=== PATIENT | female | born 1950 | race Caucasian/White ===

== ENCOUNTER 2019-03-16 16:56 | Inpatient (IN) | payer MEDICARE, MEDICAID ==
[~2019-03-16] VITALS: Ht 165.1 cm; Wt 66.5 kg
[2019-03-16] MEDS ORDERED: LIBRIUM25 MG PO (20:39)
[2019-03-16] MEDS ORDERED: PEPCID AC20 MG PO (20:41)
[2019-03-16] MEDS ORDERED: FOLIC ACID1 MG PO (20:42)
[2019-03-16] MEDS ORDERED: ATROVENT 0.02%2.5 ML UPD (20:45)
[2019-03-16] MEDS ORDERED: MULTIGEN FOLIC1 EACH PO (20:46)
[2019-03-16] MEDS ORDERED: VITAMIN B-1100 M1 PO (20:47)
[2019-03-16] MEDS ORDERED: PROPAFENONE HC225 MG PO (20:48)
[2019-03-16] MEDS ORDERED: TOPROL XL100 MG PO (20:49)
[2019-03-16] MEDS ORDERED: CARDIZEM120 MG PO (20:50)
[2019-03-16] MEDS ORDERED: BAYER CHEWABLE81 MG PO (20:51)
[2019-03-16] MEDS ORDERED: HYDROCODON-ACE1 EAC7 PO (20:52)
[2019-03-16 20:59] VITALS: BP 121/72
--- NOTE | 2019-03-17 03:28 | NUR ---
PATIENT ARRIVED FROM [facility] VIA AMBULANCE AT 20:25, PATIENT HAD WENT TO [facility] ER FOR LEG PAIN AND WHILE THERE DEVELOPED ETOH WITHDRAWL SYMPTOMS, AND AFIB, PATIENT WAS COMBATIVE WITH HEALTHCARE TEAM AT [facility], EDWIND WORD IS 'BUSTER' AND CODE STATUS IS FULL CODE, WEIGHT IS 135.2 LBS, TWO PERSON ASSIST WHEN TRANSFERING, WILL CONTINUE TO MONITOR.
[2019-03-17 05:54] VITALS: BP 121/72; BMI 22.5
[2019-03-17 07:39] LABS: BASOPHILS 0.2 % (0-2); EOSINOPHILS 2.8 % (0-7); HEMATOCRIT 45.9 % (36.0-48.0); HEMOGLOBIN 15.9 g/dL (12-16); IMMATURE GRANULOCYTES 0.2 % (0-5); LYMPHOCYTES 21.7 % (15-50); MCH 33.4 pg (26.0-34.0); MCHC 34.6 g/dL (31.0-37.0); MCV 96.4 fL (80.0-100.0); MEAN PLATELET VOLUME 11.9 fL (7.4-10.4); MONOCYTES 9.7 % (2-11); NEUTROPHILS 65.4 % (40-80); PLATELET COUNT 206 10x3/uL (130-400); RBC 4.76 10x6/uL (4.00-5.40); RDW 13.1 % (11.5-14.5); WBC 9.2 10x3/uL (4.8-10.8)
[2019-03-17 08:23] LABS: ALBUMIN 2.7 g/dL (3.4-5.0); ANION GAP 12.4 mmol/L (8-16); BILIRUBIN - TOTAL 0.83 mg/dL (0.2-1.3); CALCIUM 9.3 mg/dL (8.5-10.1); CARBON DIOXIDE 28.7 mmol/L (21.0-32.0); CHOL - HDL RATIO 4.1 ratio (2.3-4.1); LDL-HDL RATIO 2.4 ratio (1.5-3.5); POTASSIUM - SERUM 4.1 mmol/L (3.5-5.1); PROTEIN - SERUM 7.4 g/dL (6.4-8.2); THYROID STIMULATING HORMONE 2.93 uIU/mL (0.36-3.74)
[2019-03-17 08:30] VITALS: BP 124/63
--- NOTE | 2019-03-17 10:23 | NUR ---
The patient is lethargic this am, she did not want to get out of bed, but she did stand for staff. Offered her prescribed meds, but she refused some of them. She answers some questions, but she stops talking at other times. She is in a w/c. Continue POC.
[2019-03-17 12:36] VITALS: Ht 165.1 cm; Wt 66.5 kg
--- NOTE | 2019-03-17 15:10 | NUR ---
The patient is staring blankly. She is talking and I did go up to her so that I could listen better, but she is nonsensical. I did offer her juice and water, she did drink it.
[2019-03-17 20:00] VITALS: BP 142/92
--- NOTE | 2019-03-18 03:29 | NUR ---
B) Patient is alert and oriented to person, restless and anxious I) Administered scheduled medications as ordered, PRN Ativan 0.5 mg PO for anxietyat 20:30 R) Medication compliant, sleeping now quietly P) Continue plan of care.
--- NOTE | 2019-03-18 07:20 | NUR ---
SITTING UP IN WHEELCHAIR.FLAT AFFECT.SLOW TO RESPOND VERBALLY.ORIENTED TO SELF.DOES NOT RESPOND TO ALL QUESTIONS.WILL CONTINUE WITH CURRENT PLAN OF CARE,MONITOR FOR CHANGES AND SAFETY.
[2019-03-18 11:09] VITALS: BP 127/66
--- NOTE | 2019-03-18 14:27 | PSY ---
PATIENT NAME:SILVIA MARIE MEDICAL RECORD: [id number] : 46 LOCATION:[facility]1123 ADMISSION DATE: 03/16/19 ACCOUNT: [id number] PSYCHIATRIC EVALUATION DATE OF EVALUATION: 03/17/19 IDENTIFYING DATA: The patient is 68 years old and she is admitted to the hospital on a voluntary basis. CHIEF COMPLAINT: Confusion. HISTORY OF PRESENT ILLNESS: At the beginning of this month, the patient presented to the Emergency Room at the [facility]. At that time, she was complaining about having some kind of pain or soreness in her leg. However, she was confused, combative with the staff and was experiencing alcohol withdrawal. She was admitted to the floor medically there because she also had atrial fibrillation. She has been confused and combative throughout her 3-week stay there and it is not improved and she was transferred to us for further evaluation and treatment. On interview, the patient is awake, but not interacting. She knows her name. She knows she is not in [place], which is where she is from, but she does not know where she is. She answers some pretty basic questions yes or no, it is hard to tell if she is correct, since I do not know about the background, but anything more than that if it requires a multiword answer, she trails off into a disorganized jumble. She has not been aggressive since she arrived here yesterday afternoon. PAST MEDICAL HISTORY: Was remarkably clean for a woman in her 70s. She had broken her hip about a year ago. She developed the atrial fibrillation in the hospital recently. Other than that, she has been fairly healthy. PAST PSYCHIATRIC HISTORY: Apparently significant for a lifelong problem with alcohol addiction. Through most of her adult life, she was somewhat functional, but still drink way too much. There is no known history of any kind of treatment interventions or other psychiatric problems. FAMILY HISTORY: Unknown. ALLERGIES: No known drug allergies. CURRENT MEDICATIONS: Include Rythmol, thiamine, folic acid, Pepcid, aspirin, metoprolol, and Cardizem. SOCIAL HISTORY: The patient is . Apparently, her last February. She has 2 adult sons who live out of state. I have information from one of them that she has been a lifelong alcoholic. I do not know much else about her social or occupational functioning at this time. MENTAL STATUS EXAMINATION: The patient is sleepy, but easily arousable and awake. She is oriented to person only. Her mood is flat. Her affect is constricted. Thought processes are disorganized and formal testing of her memory, concentration, and abstraction abilities is not possible. She denies that she would hurt herself or anyone else and she denies psychotic symptoms. ASSETS: Supportive family members. LIABILITIES: Limited insight. DIAGNOSTIC IMPRESSION: AXIS I: Alcohol-related dementia, alcohol abuse. AXIS II: Deferred. AXIS III: Atrial fibrillation, chronic obstructive pulmonary disease. AXIS IV: Moderate stressors. AXIS V: Global assessment of functioning is 20. PLAN: At this time, the patient is admitted to the hospital secondary to confusion and agitation likely associated with a protracted longstanding history of alcohol abuse. She will be admitted to the hospital and evaluated from both a medical, psychological, and social standpoint. She will be treated with both mood stabilizing and memory enhancing medications. Her long-term prognosis is guarded. TRANSINT:[id number] Voice Confirmation ID: [id number] DOCUMENT ID: [id number] NOHEMI MONTANEZ MD at 1427 CC: [id number] DICTATION DATE: 03/17/19906 ADVERTISING ACCOUNT EXECUTIVE: 03/17/19 0938 ADM IN [facility] [address] [place] [address]
--- NOTE | 2019-03-18 21:29 | NUR ---
RECEIVED IN DAYROOM. SITTING IN A CHAIR WITH PEERS AT HER SIDE. CALM AND COOPERATIVE WITH CARE AND ASSESSMENT. REDIRECT AND REORIENT NEEDED. RESTING IN BED WITH EYES CLOSED. CONTINUE PLAN OF CARE
[2019-03-19 09:20] VITALS: BP 114/69
--- NOTE | 2019-03-19 13:13 | PN ---
PATIENT:SILVIA MARIE MEDICAL RECORD: [id number] LOCATION:[facility]audhari ADMISSION DATE: 03/16/19 PROGRESS NOTE DATE OF SERVICE: 03/18/2019 SUBJECTIVE: The patient's case was discussed with staff. She has no new complaint. OBJECTIVE: The patient is tolerating her medicines well. There is no evidence of alcohol withdrawal. She is quite disorganized. ASSESSMENT: Alcohol-related dementia. PLAN: Current medicines have been reviewed and will be maintained. Long-term prognosis is guarded. TRANSINT:[id number] Voice Confirmation ID: [id number] DOCUMENT ID: [id number] NOHEMI MONTANEZ MD at 1313 CC: [id number] DICTATION DATE: 03/18/19 1438 CORPORATE QUALITY ASSURANCE MANAGER: 03/18/19 1620 ADM IN [facility] [address] [place] [address]
--- NOTE | 2019-03-19 15:00 | NUR ---
PATIENT IS ALERT AND ORIENTED TO PERSON ONLY. SHE IS QUIET AND LETHARGIC THIS MORNING, WITH CONFUSION NOTED. CALM AND COOPERATIVE WITH CARE AND ASSESSMENT. COMPLIANT WITH MEDICATIONS. MONITOR FOR SAFETY AND CHANGES. CONTINUE POC.
--- NOTE | 2019-03-19 15:27 | NUR ---
Nutrition Follow-up: Diet: Regular [facility] Soft PO intake: 0% x all meals No BM since admit. WT: 135.4# (03/17/19) Meds reviewed. No new labs. Recommend adding appetite stimulant as medically feasible. Also recommend bowel regimen. Will add Ensure TID. Encourage PO intake. RD following.
[2019-03-19 20:15] VITALS: BP 132/71
--- NOTE | 2019-03-19 21:24 | NUR ---
RECEIVED IN DAYROOM. SITTING IN A CHAIR WITH PEERS AT HER SIDE. CALM AND COOPERATIVE WITH CARE AND ASSESSMENT. ENCOURAGE TO EXPRESS NEEDS. RESTING IN BED WITH EYES CLOSED. CONTINUE PLAN OF CARE
[2019-03-20 07:12] LABS: RAPID PLASMA REAGIN Non Reactive (Non Reactive)
[2019-03-20 08:00] VITALS: BP 125/66
--- NOTE | 2019-03-20 11:11 | PN ---
PATIENT:SILVIA MARIE MEDICAL RECORD: [id number] LOCATION:[facility] ADMISSION DATE: 03/16/19 PROGRESS NOTE DATE OF SERVICE: 03/19/2019 SUBJECTIVE: The patient's case was discussed with staff. She has no new complaint. OBJECTIVE: The patient is severely impaired cognitively. She clearly has an advanced dementia. She has not been behaviorally out of control. She is not eating adequately. ASSESSMENT: Alcohol-related dementia. PLAN: Current medicines have been reviewed. I am going to give her Megace to assist with appetite stimulation. She will be monitored for clinical changes associated with its use. TRANSINT:[id number] Voice Confirmation ID: [id number] DOCUMENT ID: [id number] NOHEMI MONTANEZ MD at 1111 CC: [id number] DICTATION DATE: 03/19/19 172 MERCHANDISE CARRIER: 03/20/19 0234 ADM IN [facility] [address] [place] [address]
--- NOTE | 2019-03-20 14:32 | NUR ---
PT SITTING IN DAY AREA IN W/C. PT REFUSED TO EAT BREAKFAST AND LUNCH. PT KEEPS TO HERSELF NOT SPEAKING TO STAFF AND OTHERS. PT SPEECH IS VERY GARBLE. PT DID TAKE MEDICATIONS THIS SHIFT. STAFF ATTEMPTED TO ENCOURAGE PT TO EAT AND PT SPIT FOOD OUT. PT IS CONFUSED AND ALERT TO SELF ONLY. PT DOES NOT AMBUALTE. CHAIR ALARM IN PLACE AND ACTIVE. WILL CONT PLAN OF CARE.
[2019-03-20 20:00] VITALS: BP 141/79
--- NOTE | 2019-03-20 23:28 | NUR ---
B) Patient is alert and oriented to person and place, calm and cooperative this shift I) Administered scheduled medications as ordered, monitored for safety R) mediation compliant, very quiet and keeps toherself P) Continue plan of care.
--- NOTE | 2019-03-21 07:15 | NUR ---
The patient is awake, but she is staring blankly. She is lethargic, she answers some questions, but she usually does not speak. She has poor insight into her situation. She is in a w/c and needs assistance with transferring. Provide prescribed meds. She is not eating, drinking or taking her meds per instructor of sociology report. Continue POC.
--- NOTE | 2019-03-21 08:37 | PN ---
PATIENT:SILVIA MARIE MEDICAL RECORD: [id number] LOCATION:[facility]stein112 ADMISSION DATE: 03/16/19 PROGRESS NOTE DATE OF SERVICE: 03/20/2019 SUBJECTIVE: The patient's case was discussed with staff. She has no new complaint. OBJECTIVE: The patient is not eating adequately. She only ate 10% of one meal yesterday. She has started taking her medications, which I hope will assist her. She is still only oriented to person. TRANSINT:[id number] Voice Confirmation ID: [id number] DOCUMENT ID: [id number] NOHEMI MONTANEZ MD at 0837 CC: [id number] DICTATION DATE: 03/20/19 1319 PHYSICIST LIGHT AND OPTICS: 03/20/19 1402 ADM IN [place] [id number] [place] [address]
[2019-03-21 10:54] LABS: BASOPHILS 0.3 % (0-2); EOSINOPHILS 4.1 % (0-7); HEMATOCRIT 42.9 % (36.0-48.0); HEMOGLOBIN 15.1 g/dL (12-16); IMMATURE GRANULOCYTES 0.2 % (0-5); LYMPHOCYTES 22.5 % (15-50); MCH 33.1 pg (26.0-34.0); MCHC 35.2 g/dL (31.0-37.0); MCV 94.1 fL (80.0-100.0); MEAN PLATELET VOLUME 12.1 fL (7.4-10.4); NEUTROPHILS 63.9 % (40-80); PLATELET COUNT 210 10x3/uL (130-400); RBC 4.56 10x6/uL (4.00-5.40); RDW 12.8 % (11.5-14.5); WBC 6.6 10x3/uL (4.8-10.8)
[2019-03-21 11:01] LABS: CALC OSMOLALITY 286 mosm/kg (275-300); CALCIUM 9.3 mg/dL (8.5-10.1); CARBON DIOXIDE 27.5 mmol/L (21.0-32.0); CHLORIDE - SERUM 104 mmol/L (98-107); CREATININE - SERUM 0.8 mg/dL (0.6-1.3); GLUCOSE 111 mg/dL (74-106); POTASSIUM - SERUM 3.9 mmol/L (3.5-5.1); SODIUM 142 mmol/L (136-145); UREA NITROGEN 20 mg/dL (7-18); eGFR NON AFRICAN AMERICAN 75 mL/min (90-120)
[2019-03-21 11:30] VITALS: BP 125/62
[2019-03-21 20:28] VITALS: BP 139/80
--- NOTE | 2019-03-22 00:05 | NUR ---
B)SITTING IN WHEELCHAIR IN THE DAYROOM. DOES NOT ACKNOWLEDGE WHEN APPROACHED BY OTHERS. SITS WITH HEAD DOWN WITH NO EYE CONTACT OR VERBAL RESPONSES. CONFUSED AND DISORIENTED. I)ADMINISTER MEDS AND MONITOR COMPLIANCE. REORIENT NEEDED. R)MED COMPLIANT AFTER ALOT OF ENCOURAGEMENT. POOR REORIENTATION DUE TO IMPAIRED ABILITY TO COMPREHEND AND RETAIN INFORMATION. P)CONTINUE POC AND PROVIDE SAFE ENVIRONMENT.
[2019-03-22 09:56] VITALS: BP 113/46
--- NOTE | 2019-03-22 10:50 | NUR ---
Nutrition Follow-up: Diet: Regular [facility] Soft PO intake: 0-20%; noted in MD notes that pt is being fed but is refusing to eat or drink and is at risk for dehydration. No BM since admit x 6 days now. WT: 140# (03/18/19) Meds noted: megace. Labs noted: Glu 111 mg/dL. Current diet is appropriate. Continue to feed and encourage PO intake. Will add Ensure with meals. Continue Megace as medically feasible. May consider adding procalamine for a short time. If more aggressive nutrition support medically indicated or desired recommend: Osmolite 1.0 with goal rate of 62mL/hr + H2O @ 50Ml flush q 4hrs. RD following.
--- NOTE | 2019-03-22 14:00 | NUR ---
B) SITTING IN DAYROOM, WITH HEAD DOWN AND NO EYE CONTACT. SHE DOES NOT VERBALIZE ANYTHING THAT CAN BE UNDERSTOOD. I) ADMINISTERED PRESCRIBED MEDICATIONS ORDERED. REORIENT as directed. R) COMPLIANT WITH MEDICATIONS CRUSHED IN APPLESAUCE WITH A LOTS OF COERSION. P) MONITOR FOE SAFETY AND CONTINUE PLAN OF CARE.
--- NOTE | 2019-03-22 15:22 | PN ---
PATIENT:SILVIA MARIE MEDICAL RECORD: [id number] LOCATION:[facility] ADMISSION DATE: 03/16/19 PROGRESS NOTE DATE OF SERVICE: 03/21/2019 SUBJECTIVE: The patient's case was discussed with staff. She has no new complaint. OBJECTIVE: The patient is tolerating her medicines well. She is still not eating adequately. She unfortunately only takes her medications intermittently. ASSESSMENT: Alcohol-related dementia. PLAN: The patient will have some baseline labs checked. This will be for confirming metabolic stability. Her long-term prognosis is poor and it may be time to consider referring her to hospice if she does not begin eating and drinking. I believe the lack of oral intake is related to a dementing process as opposed to an underlying mood disorder. TRANSINT:[id number] Voice Confirmation ID: [id number] DOCUMENT ID: [id number] NOHEMI MONTANEZ MD at 1522 CC: [id number] DICTATION DATE: 03/21/19 0950 CRM COORDINATOR: 03/21/19 1009 ADM IN [place] [address] [place] [address]
[2019-03-22 20:00] VITALS: BP 136/72
--- NOTE | 2019-03-22 21:05 | NUR ---
PATIENT HAS A FLAT AFFECT, NO EYE CONTACT, HAVE HEARD THIS PATIENT SPEAK ONLY ONCE(ONE WORD). MEDS ARE CRUSHED AND SHE TAKES THEM. TOTALLY DEPENDENT UPON OTHERS FOR ALL CARE. WILL FOLLOW POC
[2019-03-23 08:02] VITALS: BP 124/69
[2019-03-23 08:39] VITALS: BP 124/69
--- NOTE | 2019-03-23 09:37 | NUR ---
The patient is lethargic she can stand with assist, but she does not want to do it. She took a couple bites of eggs. She drank her orange juice and ensure. She is in a w/c. She says very little. Provide prescribed meds. Crushed meds put in her ensure and she drank it. Continue POC.
--- NOTE | 2019-03-23 11:18 | NUR ---
SW SPOKE WITH PT'S SONS TO DISCUSS PROGNOSIS AND PT'S CONDITION. SW EDUCATED ON DISEASE PROGRESSION, MEDICATION MANAGEMENT, AND PT'S CONDITION. SW EXPLAINED PT'S PROGNOSIS IS POOR AND A HOSPICE CONSULT IS RECOMMENDED. SW EXPLANINED ABOUT 24/7 CARE AND IF THEY DIDN'T WANT TO DO HOSPICE THEY CAN TAKE THE OPTION OF A FEEDING TUBE IF RECOMMENDED BY THE PHYSICIAN. BOTH SONS STATED THEY NEED TO HAVE A CONVERSATION AMONGST THEMSELVES TO DECIDE WHAT IS THE NEXT STEP THEY WANT TO TAKE. THEY STATED THEY ARE WORKING OUT OF TOWN AND WOULD LIKE TO FOLLOW UP WITH WIRE DRAWING SETTER ON TUESDAY. SW EXPLAINED THEY CAN CALL FOR AN UPDATE AT ANYTIME. BOTH OF PT'S SONS VOICED UNDERSTANDING OF DISCUSSION.
--- NOTE | 2019-03-23 12:27 | NUR ---
PT CONTS TO NOT WANT TO EAT. NURSE GOT HER TO DRINK A ENSURE AT BREAKFAST. NURSE OFFERED SEVERAL DIFFERNT ITEMS AT LUNCH. OTHER NURSE ATTEMPTED TO ENCOURAGE AND ASSIST PT WITH LUNCH. PT REFUSED TO EAT ANYTHING. WILL CONT TO ENCOURAGE.
--- NOTE | 2019-03-23 14:14 | PN ---
PATIENT:SILVIA MARIE MEDICAL RECORD: [id number] LOCATION:[facility]stein112 ADMISSION DATE: 03/16/19 PROGRESS NOTE DATE OF SERVICE: 03/22/2019 SUBJECTIVE: The patient's case was discussed with staff. She has no new complaint. OBJECTIVE: The patient is not able to take the Depakote. I am going to go ahead and discontinue it. She is showing no evidence of alcohol withdrawal. Unfortunately, she is showing massive amount of evidence of an advanced dementia. ASSESSMENT: Alcohol-related dementia. PLAN: The patient is clearly going to require 04-boxy-w-day supervision. Her oral intake is exceedingly poor and almost superhuman efforts are being made by the department of staff to get her to take fluid and food. Obviously, if the situation does not change she is going to require feeding tube or some sort of IV hydration. TRANSINT:[id number] Voice Confirmation ID: [id number] DOCUMENT ID: [id number] NOHEMI MONTANEZ MD at 1414 CC: [id number] DICTATION DATE: 03/22/19 1537 TAP PULLER: 03/22/19 2336 ADM IN [facility] [address] [place] [address]
[2019-03-23 16:12] LABS: BASOPHILS 0.5 % (0-2); HEMATOCRIT 47.5 % (36.0-48.0); HEMOGLOBIN 16.2 g/dL (12-16); IMMATURE GRANULOCYTES 0.2 % (0-5); LYMPHOCYTES 28.6 % (15-50); MCH 32.7 pg (26.0-34.0); MCHC 34.1 g/dL (31.0-37.0); MEAN PLATELET VOLUME 11.8 fL (7.4-10.4); MONOCYTES 8.9 % (2-11); NEUTROPHILS 56.8 % (40-80); PLATELET COUNT 200 10x3/uL (130-400); RBC 4.95 10x6/uL (4.00-5.40); RDW 12.7 % (11.5-14.5); WBC 6.2 10x3/uL (4.8-10.8)
[2019-03-23 16:26] LABS: ANION GAP 16.7 mmol/L (8-16); CALCIUM 9.7 mg/dL (8.5-10.1); CARBON DIOXIDE 24.5 mmol/L (21.0-32.0); CREATININE - SERUM 0.9 mg/dL (0.6-1.3); POTASSIUM - SERUM 4.2 mmol/L (3.5-5.1); VALPROIC ACID (DEPAKOTE) 51.1 ug/mL (50.0-100.0)
[2019-03-23 20:10] VITALS: BP 147/83
--- NOTE | 2019-03-23 21:26 | NUR ---
RECEIVED IN DAYROOM. SITTING IN WHEELCHAIR QUIETLY WITH PEERS BY HER SIDE. CALM AND COOPERATIVE WITH CARE AND ASSESSMENT. DOESN'T ANSWER VERY MANY QUESTIONS AND RESPONSES DON'T MAKE SENSE MOST OF THE TIME WHEN SHE DOES ANSWER. REDIRECT AND REORIENT NEEDED. CONTINUES TO SIT QUIETLY IN DAYROOM AT THIS TIME. CONTINUE PLAN OF CARE.
[2019-03-24 08:00] VITALS: BP 107/83
--- NOTE | 2019-03-24 10:14 | NUR ---
PT SITTING AND ATTEMPTING TO TALK TO PEER AT THE TABLE. PT IS CALM AND COOPERATIVE WITH STAFF. NO ACUTE DISTRESS NOTED. PT ATE SOME AT BREAKFAST. PT DID ALLOW NURSE TO ADMINISTER MEDICATION. BLOOD PRESSURE MEDICATIONS HELD DUE TO BLOOD PRESSURE OF 110/83. PT IS ALERT AND ORIENTED TO SELF ONLY. CONFUSION NOTED. WHEN SPEAKS TO PT SHE ATTEMPTS TO TALK BACK UNABLE TO UNDERSTAND WHAT PT IS SAYING. WILL CONT TO ENCOURAGE PT TO TALK WITH STAFF, EAT MORE OF MEALS AND CONT TO TAKE MEDICATIONS. NO BEHAVIORS NOTED FROM PREVIOUS SHIFT. CHAIR ALARM IN PLACE AND ACTIVE. WILL CONT PLAN OF CARE.
--- NOTE | 2019-03-24 13:05 | PN ---
PATIENT:SILVIA MARIE MEDICAL RECORD: [id number] LOCATION:[facility]stein112 ADMISSION DATE: 03/16/19 PROGRESS NOTE DATE OF SERVICE: 03/23/2019 SUBJECTIVE: The patient's case was discussed with staff. She has no new complaint. OBJECTIVE: The patient will be maintained on current medications. She is blunted, withdrawn and minimally interacts. I am doubtful that the Trilafon is causing sedation, but we will consider discontinuing it. This patient has a clinical presentation that does not fit well with the longitudinal history. The longitudinal history is that she was intact a month ago. The clinical presentation is one of an advanced dementia, which obviously does not come on overnight. There is no evidence medically or neurologically of any other condition. At this point, I am going to treat her symptomatically and supportively and will refer her to a setting where her needs can be properly met. TRANSINT:[id number] Voice Confirmation ID: [id number] DOCUMENT ID: [id number] NOHEMI MONTANEZ MD at 1305 CC: [id number] DICTATION DATE: 03/23/19 1543 WEB MARKETING SPECIALIST: 03/23/19 2349 ADM IN [facility] [address] [place] [address]
--- NOTE | 2019-03-24 19:41 | NUR ---
RECEIVED IN DAYROOM. SITTING IN A CHAIR WITH PEERS AT HER SIDE. CALM AND COOPERATIVE WITH CARE AND ASSESSMENT. ENCOURAGE TO EXPRESS NEEDS. REDIRECT AND REORIENT NEEDED. RESTING QUIETLY IN DAYROOM AT THIS TIME. CONTINUE PLAN OF CARE.
[2019-03-24 20:24] VITALS: BP 114/73
[2019-03-25 08:17] VITALS: BP 124/75
[2019-03-25 14:01] LABS: BASOPHILS 0.4 % (0-2); EOSINOPHILS 5.2 % (0-7); HEMATOCRIT 46.7 % (36.0-48.0); HEMOGLOBIN 16.1 g/dL (12-16); IMMATURE GRANULOCYTES 0.3 % (0-5); LYMPHOCYTES 25.2 % (15-50); MCH 33.3 pg (26.0-34.0); MCHC 34.5 g/dL (31.0-37.0); MCV 96.5 fL (80.0-100.0); MEAN PLATELET VOLUME 11.8 fL (7.4-10.4); MONOCYTES 8.2 % (2-11); NEUTROPHILS 60.7 % (40-80); PLATELET COUNT 203 10x3/uL (130-400); RBC 4.84 10x6/uL (4.00-5.40); RDW 12.9 % (11.5-14.5); WBC 7.2 10x3/uL (4.8-10.8)
--- NOTE | 2019-03-25 14:21 | NUR ---
PT SITTING IN W/C AT THIS TIME. NO DISTRESS NOTED. ENCOURAGE PT TO MAKE NEEDS KNOWN. PT MUMBLES AT TIMES. PT IS CINFUSED ALERT TO SELF ONLY. PT IS EATING BETTER WITH INCREASED BITES OF FOOD AND DRINKING ENSURES WHEN NOT EATING MEALS. CONT TO ENCOURGE PT TO EAT. 2X ASSISTED TO TRANSFER. PT IS COMPLIANT WITH MEALS, VITALS, MEDS AND ASSESSMENTS. CHAIR ALARM IN PLACE AND ACTIVE. WILL CONT TO MONITOR.
[2019-03-25 14:24] LABS: ANION GAP 15.3 mmol/L (8-16); CARBON DIOXIDE 26.7 mmol/L (21.0-32.0); CREATININE - SERUM 0.9 mg/dL (0.6-1.3)
--- NOTE | 2019-03-25 19:04 | NUR ---
RECEIVED IN DAYROOM. SITTING IN WHEELCHAIR WITH PEERS BY HER SIDE. CALM AND COOPERATIVE WITH CARE AND ASSESSMENT. CONFUSED. REDIRECT AND REORIENT NEEDED. SITTING IN WHEELCHAIR IN DAYROOM AT THIS TIME. CONTINUE PLAN OF CARE.
[2019-03-25 20:29] VITALS: BP 139/92
[2019-03-26 10:23] VITALS: BP 109/73
--- NOTE | 2019-03-26 13:28 | NUR ---
PT IS AWAKE AND ALERT TO SELF ONLY. CALM AND COOPERATIVE WITH ASSESSMENT. PRESCRIBED MEDS PROVIDED ORDERED. MED COMPLIANT ,TAKES MED CRUSHED. PT ATTEMPTS TO TALK WITH STAFF, UNABLE TO UNDERSTAND WHAT PT IS SAYING. PT ENCOURAGED TO TALK WITH STAFF, EAT MORE OF MEALS AND CONT. TO TAKE MEDICATIONS. NO BEHAVIORS NOTED. CHAIR ALARM IN PLACE AND WORKING. WILL CPOC.
--- NOTE | 2019-03-26 13:49 | PN ---
PATIENT:SILVIA MARIE MEDICAL RECORD: [id number] LOCATION:[facility] Chaudhari ADMISSION DATE: 03/16/19 PROGRESS NOTE DATE OF SERVICE: 03/25/2019 SUBJECTIVE: The patient's case was discussed with staff. She has no new complaint. OBJECTIVE: The patient still is not eating adequately; however, in between meals staff is clearly giving her and getting for her Ensure and other liquids. ASSESSMENT: Alcohol-related dementia. PLAN: The patient will have baseline labs checked. She continues to not show any significant improvement, which I think is an ominous situation for her. Again, the son, that I spoke to on the phone, Adam, says that she was fine and completely conversant and interactive when he was here for Thanksgiving. She was on a ventilator at . My best guess is that this represents some sort of a global hypoxic injury along with some underlying damage that have been done over many years of alcohol consumption. TRANSINT:[id number] Voice Confirmation ID: [id number] DOCUMENT ID: [id number] NOHEMI MONTANEZ MD at 1349 CC: [id number] DICTATION DATE: 03/25/19 1228 ROLLING CHAIR PUSHER: 03/25/19 1317 ADM IN [place] [address] [place] [address]
--- NOTE | 2019-03-26 13:49 | PN ---
PATIENT:SILVIA MARIE MEDICAL RECORD: [id number] LOCATION:[facility] Chaudhari ADMISSION DATE: 03/16/19 PROGRESS NOTE DATE OF SERVICE: 03/24/2019 SUBJECTIVE: The patient's case was discussed with staff. She has no new complaint. OBJECTIVE: The patient is in good behavioral control, but very withdrawn. She is not eating or drinking adequately. She has an elevated BUN. Staff is attempting to improve her oral intake with very limited results. ASSESSMENT: Dementia. PLAN: Current medicines have been reviewed and will be maintained. Long-term prognosis is guarded. TRANSINT:[id number] Voice Confirmation ID: [id number] DOCUMENT ID: [id number] NOHEMI MONTANEZ MD at 1349 CC: [id number] DICTATION DATE: 03/24/19 1359 MANAGER VIDEO GAMES: 03/24/19 1444 ADM IN [place] [address] [place] [address]
[2019-03-26 20:31] VITALS: BP 120/82
--- NOTE | 2019-03-26 20:49 | NUR ---
RECEIVED IN DAYROOM. SITTING IN A CHAIR WITH PEERS AT HER SIDE. CALM AND COOPERATIVE WITHCARE AND ASSESSMENT. REDIRECT AND REORIENT NEEDED. RESTING IN BED WITH EYES CLOSED AT THIS TIME. CONTINUE PLAN OF CARE
--- NOTE | 2019-03-26 20:52 | NUR ---
RECEIVED IN DAYROOM. SITTING IN A CHAIR WITH PEERS AT HER SIDE. NO STATEMENTS OF SELF HARM VOICED THIS EVENING. ENCOURAGE TO EXPRESS NEEDS. RESTING IN BED WITH EYES CLOSED. CONTINUE PLAN OF CARE
[2019-03-27 10:10] VITALS: BP 120/61
--- NOTE | 2019-03-27 11:59 | NUR ---
The patient is awake and more alert, but she is speaking nonsensical and it is difficult to understand her. She keeps getting in other patients space, but she is carrying on a conversation. She has poor insight into her situation. She is a two person assist with transfers. Provide prescribed meds. The patient is compliant with meds. Continue POC.
--- NOTE | 2019-03-27 15:10 | PN ---
PATIENT:SILVIA MARIE MEDICAL RECORD: [id number] LOCATION:[facility] Goldstein112 ADMISSION DATE: 03/16/19 PROGRESS NOTE DATE OF SERVICE: 03/26/2019 SUBJECTIVE: The patient's case was discussed with staff. She has no new complaint. OBJECTIVE: The patient is in good behavioral control. She has poor insight about her situation. She is actually eating a little bit and very much to the credit of our nursing staff, they must be getting water and bottles of Ensure into her periodically because her lab is not what I would expect to be based upon the account for her meals and she is only mildly dehydrated and she has not lost any weight since last week. Unfortunately, she still remains profoundly impaired and I have no explanation for what might have happened to provide to the family. This is how she looked when she was sent to me from [facility]. This is not what she looked like when she was sent to [facility] according to the son. I do not have an explanation. She looks clinically to me is like someone who has an advanced dementia. ASSESSMENT: No change in diagnoses. PLAN: Current medicines have been reviewed and will be maintained. Long-term prognosis is guarded. I think it is time to look for placement for this patient and she is clearly at this point going to need 42-jvyp-o-day supervision. TRANSINT:[id number] Voice Confirmation ID: [id number] DOCUMENT ID: [id number] NOHEMI MONTANEZ MD at 1510 CC: [id number] DICTATION DATE: 03/26/19 1533 COMMUNICATIONS TOWER CLIMBER: 03/26/19 2247 ADM IN [place] [id number] [place] [address]
[2019-03-27 22:07] VITALS: BP 130/64
--- NOTE | 2019-03-28 02:09 | NUR ---
B) Patient is alert and oriented to person, social with other patients, I) Administered scheduled medications as ordered, redirected as needed R) Medication compliant, resting quietly in her bed now, P) Continue plan of care.
[2019-03-28 09:25] VITALS: BP 117/68
--- NOTE | 2019-03-28 09:41 | PN ---
PATIENT:SILVIA MARIE MEDICAL RECORD: [id number] LOCATION:[facility] ADMISSION DATE: 03/16/19 PROGRESS NOTE DATE OF SERVICE: 03/27/2019 SUBJECTIVE: The patient's case was discussed with staff. She has no new complaint. OBJECTIVE: The patient is still not eating or drinking adequately. However, sufficient fluid and nutrition is getting into her through the regular consumption of Ensure. She would not interact with me today, but she did speak a complete sentence telling me twice she wants me to go away. ASSESSMENT: No change in diagnoses. PLAN: Current medicines have been reviewed and will be maintained. I am not optimistic about her prognosis despite the fact she is a little better today. TRANSINT:[id number] Voice Confirmation ID: [id number] DOCUMENT ID: [id number] NOHEMI MONTANEZ MD at 0941 CC: [id number] DICTATION DATE: 03/27/19 1544 RESPIRATORY CARE FACULTY: 03/28/19 0057 ADM IN [place] [id number] [place] [address]
[2019-03-28 10:05] VITALS: BP 117/68
--- NOTE | 2019-03-28 11:28 | NUR ---
PT IS AWAKE AND ALERT TO SELF ONLY. CALM AND COOPERATIVE WITH ASSESSMENT. PRESCRIBED MEDS PROVIDED ORDERED. NONCOMPLIANT WITH MEDS. PT IS VERY CONFUSED. PT ATTEMPTS TO SPEAK, SPEECH IS VERY UNCLEAR AND HARD TO MAKE OUT AT TIMES. NO BEHAVIORS NOTED AT THIS TIME. PT REFUSES TO EAT OR DRINK AT THSI TIME. ENCOURAGED PT TO EXPRESS NEEDS TO STAFF. DRINKS AND SNACKS OFFERRED TO PT, REFUSED X 3. WILL ATTEMPT AT LATER TIME. REDIRECT AND REORIENT NEEDED. WILL CPOC.
--- NOTE | 2019-03-28 19:18 | NUR ---
RECEIVED IN DAYROOM. SITTING IN A RECLINING CHAIR. CALM AND COOPERATIVE WITH CARE AND ASSESSMENT. NO STATEMENTS OF SELF HARM MADE THIS EVENING. ENCOURAGE TO EXPRESS NEEDS. RESTING IN A RECLINER OUTSIDE OF NURSES STATION AT THIS TIME. CONTINUE PLAN OF CARE
--- NOTE | 2019-03-28 19:23 | NUR ---
RECEIVED IN DAYROOM. SITTING IN A RECLINING CHAIR WITH PEERS AT HER SIDE. CALM AND COOPERATIVE WITH CARE AND ASSESSMENT. ENCOURAGE TO EXPRESS NEEDS. RESTING IN A RECLINER OUTSIDE OF NURSES STATION AT THIS TIME. CONTINUE PLAN OF CARE
[2019-03-28 20:29] VITALS: BP 114/86
[2019-03-29 09:50] VITALS: BP 113/60
--- NOTE | 2019-03-29 13:56 | NUR ---
The patient is more awake and alert she is making some conversation but she is nonsensical at times. She is starting to eat and drink better. She still does not want to talk to Dr. Anand. She is self propelling in her w/c at times. Provide prescribed meds. The patient is compliant with meds. Continue POC.
--- NOTE | 2019-03-29 14:21 | PN ---
PATIENT:SILVIA MARIE MEDICAL RECORD: [id number] LOCATION:[facility] ADMISSION DATE: 03/16/19 PROGRESS NOTE DATE OF SERVICE: 03/28/2019 SUBJECTIVE: The patient's case was discussed with staff. She has no new complaint. OBJECTIVE: The patient is in good behavioral control. She has poor insight about her condition. She tolerates her medicines well. ASSESSMENT: Alcohol-related dementia. PLAN: The patient will be maintained on current medicines. She is more awake and alert. She is interacting with me some and the interaction is primarily her telling me to leave her alone. I am going to start her on an antidepressant medicine even though my suspicion is this is primarily a condition related to either in hypoxic injury or some longstanding dementing process. TRANSINT:[id number] Voice Confirmation ID: [id number] DOCUMENT ID: [id number] NOHEMI MONTANEZ MD at 1421 CC: [id number] DICTATION DATE: 03/28/19 1016 HIDE AND SKIN CLASSER: 03/28/19 1251 ADM IN [facility] [address] [place] [address]
--- NOTE | 2019-03-29 15:53 | NUR ---
Nutrtion Follow-up: Diet: Regular Mech Soft + Ensure with meals and inbetween PO intake: ~18% average x last 9 meals; drinks supplements per MD notes Last BM: 03/23/19. WT: 135# (03/25/19); Admit wt: 135.4# (03/17/19) Meds noted: megace. No new labs. Continue current nutrition regimen. Encourage PO intake. Consider increase in bowel regimen. RD following.
[2019-03-30 00:28] VITALS: BP 130/68
--- NOTE | 2019-03-30 00:52 | NUR ---
REC'D SITTING IN THE DAYROOM. ORIENTED TO SELF ONLY. NOT INTERACTING WITH PEERS. BEHAVIOR APPROPRIATE WHEN APPROACHED BY STAFF HOWEVER WILL LITTLE TO NO VERBAL INTERACTION. WILL OCCASIONALLY VERBALIZE SINGLE WORDS. ADMINISTER MEDS AND MONITOR COMPLILANCE. REORIENT NEEDED. MED COMPLIANT. POOR REORIENTATION DUE TO IMPAIRED ABILITY TO PROCESS AND RETAIN INFORMATION.
[2019-03-30 09:04] VITALS: BP 102/66
--- NOTE | 2019-03-30 11:54 | NUR ---
The patient was attempting to get out of the bed alone this am, her alarm was going off. Assisted the patient up out of bed and get dressed. She is pleasant and she has not shown any aggression. She is talking but it is nonsensical. Provide prescribed meds. The patient is compliant with meds. Continue POC.
--- NOTE | 2019-03-30 16:20 | PN ---
PATIENT:SILVIA MARIE MEDICAL RECORD: [id number] LOCATION:[facility] ADMISSION DATE: 03/16/19 PROGRESS NOTE DATE OF SERVICE: 03/29/2019 SUBJECTIVE: The patient's case was discussed with staff. She has no new complaint. OBJECTIVE: The patient is still not wanting to interact with me. She is clearly understanding what I say but is waving me off whenever I try to talk to her. By waving me off, I mean she raises her hand and shoos me away with her fingers and then turns her face to the other side. I have tried a couple of times today to go to the side she is looking away from me and she does the same thing. I have asked her to tell me if there is something I have done to offend her if I remind her of someone if she can just explain why she will not talk to me and she will not answer. ASSESSMENT: Alcohol-related dementia. PLAN: Current medicines will be maintained. I am going to give her a low dose of Trilafon to help with thought disorganization. Hopefully, she will tolerate it well, and it will help her communicate better. TRANSINT:[id number] Voice Confirmation ID: [id number] DOCUMENT ID: [id number] NOHEMI MONTANEZ MD at 1620 CC: [id number] DICTATION DATE: 03/29/19 1548 DELIVERY TABLE OPERATOR: 03/30/19 0223 ADM IN [facility] [address] [place] [address]
[2019-03-30 20:00] VITALS: BP 127/68
--- NOTE | 2019-03-30 23:40 | NUR ---
B) Patient is alert and oriented to person, responds when spoken to, I) Administered scheduled medications as ordered, monitored for safety R) Mediation compliant, resting quietly in her bed now, P) Continue plan of care.
[2019-03-31 09:09] VITALS: BP 116/52
--- NOTE | 2019-03-31 10:00 | NUR ---
PATIENT IS AWAKE AND ALERT TO PERSON ONLY. CALM AND COOPERATIVE WITH CARE AND ASSESSMENT. ADMINISTERED SCHEDULED MEDICATIONS. COMPLIANT WITH MEDICATIONS. NO BEHAVIORES NOTED. REDIRECT AND REORIENT NEEDED. CONTINUE PLAN OF CARE.
--- NOTE | 2019-03-31 10:00 | NUR ---
B) PATIENT IS ALERT AND ORIENTED TO PERSON ONLY. STAYS TO HERSELF AND AWAY FROM OTHER PEERS.
--- NOTE | 2019-03-31 13:58 | PN ---
PATIENT:SILVIA MARIE MEDICAL RECORD: [id number] LOCATION:[facility] ADMISSION DATE: 03/16/19 PROGRESS NOTE DATE OF SERVICE: 03/30/2019 SUBJECTIVE: The patient's case was discussed with staff. She has no new complaint. OBJECTIVE: The patient is losing weight even though she continues to drink a large number of Ensures. ASSESSMENT: No change in diagnoses. PLAN: Current medicines have been reviewed and will be maintained. Long-term prognosis is guarded. TRANSINT:[id number] Voice Confirmation ID: [id number] DOCUMENT ID: [id number] NOHEMI MONTANEZ MD at 1358 CC: [id number] DICTATION DATE: 03/30/19 1655 WATER RESOURCE ENGINEERING SPECIALIST: 03/30/19 1832 ADM IN [place] [id number] [place] [id number]
[2019-03-31 19:51] VITALS: BP 110/60
--- NOTE | 2019-03-31 20:38 | NUR ---
B.) PT IS ALERT AND ORIENTED TO SELF ONLY. SHE IS PLEASANT WITH STAFF BUT KEEPS TO HERSELF. SHE IS RECEIVED IN HER WHEELCHAIR. SHE IS SMILING MORE OFTEN THAN IN THE PAST WHEN SHE IS SPOKEN TO. I.) PROVIDED PM MEDICATIONS. REDIRECT NEEDED. R.) COMPLIANT WITH ALL MEDICATIONS. EASY TO REDIRECT. P.) WILL CONTINUE TO MONITOR.
[2019-04-01 08:00] VITALS: BP 99/62
--- NOTE | 2019-04-01 11:17 | PN ---
PATIENT:SILVIA MARIE MEDICAL RECORD: [id number] LOCATION:[facility] ADMISSION DATE: 03/16/19 PROGRESS NOTE DATE OF SERVICE: 03/31/2019 SUBJECTIVE: The patient's case was discussed with staff. She has no new complaint. OBJECTIVE: The patient is tolerating her medicines well. She is more awake, but still is not wanting to interact with me. ASSESSMENT: Alcohol-related dementia. PLAN: Current medicines have been reviewed and will be maintained. Long-term prognosis is guarded. TRANSINT:[id number] Voice Confirmation ID: [id number] DOCUMENT ID: [id number] NOHEMI MONTANEZ MD at 1117 CC: [id number] DICTATION DATE: 03/31/19 1431 TRANSITION ASSISTANT: 03/31/19 1524 ADM IN [place] [id number] [place] [address]
--- NOTE | 2019-04-01 16:55 | NUR ---
CONFUSED AND DISORIENTED.COMPLIANT WITH STAFF AND MEDS.PROPELLS SELF IN WHEEELCHAIR,HAS UNSTEADY GAIT.WILL CONTINUE WITH CURRENT PLAN OF CARE,MONITOR FOR CHANGES AND SAFETY.
[2019-04-01 19:44] VITALS: BP 130/65
--- NOTE | 2019-04-01 21:05 | NUR ---
RECEIVED IN DAYROOM. SITTING IN A CHAIR WITH PEERS AT HER SIDE. CALM AND COOPERATIVE WITH CARE AND ASSESSMENT. ENCOURAGE TO EXPRESS NEEDS. REDIRECT AND REORIENT NEEDED. CONTINUES TO SIT QUIETLY. CONTINUE PLAN OF CARE
[2019-04-02 09:38] VITALS: BP 121/60
--- NOTE | 2019-04-02 10:00 | NUR ---
PATIENT IS CONFUSED AND DISORIENTED, BUT INTERACTING WITH PEERS AND STAFF SOME, SMILES, SELF PROPELS IN WHEELCHAIR. ADMINISTER SCHEDULED MEDICATIONS. COMPLIANT WITH MEDICATIONS. MONITOR FOR SAFETY AND CHANGES. CONTINUE POC.
--- NOTE | 2019-04-02 14:00 | PN ---
PATIENT:SILVIA MARIE MEDICAL RECORD: [id number] LOCATION:[facility] ADMISSION DATE: 03/16/19 PROGRESS NOTE DATE OF SERVICE: 04/01/2019 SUBJECTIVE: The patient's case was discussed with staff. She has no new complaint. OBJECTIVE: The patient is in good behavioral control with poor insight about her situation. 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 PLAN: The patient is eating and sleeping better. She still will not talk to me, although she did answer yes and no to a couple of questions. Nursing staff tells me she has been more interactive with them and she actually did some of her own dressing today. Overall, she has improved significantly. TRANSINT:[id number] Voice Confirmation ID: [id number] DOCUMENT ID: [id number] NOHEMI MONTANEZ MD at 1400 CC: [id number] DICTATION DATE: 04/01/19 1204 MULTIPLE CUT OFF SAW OPERATOR: 04/01/19 1259 ADM IN [place] [id number] [place] [address]
--- NOTE | 2019-04-02 14:15 | NUR ---
Nutrition Follow-up: Diet: Regular [facility] Soft + Ensure with meals and inbetween PO intake: ~39% average x last 9 meals Last BM: 04/02/19. WT: 138# (04/01/19); Admit wt: 135.4# (03/17/19) Meds noted: megace. No new labs. Recommend continue regular diet and diet consistency per [employer]. Continue oral nutrition supplements. Continue megace as medically feasible. Encourage PO intake. PO intake does not appear appropriate but noted that wt trend is steady. Patient must be drinking adequate calories from Ensure to maintain weight. Will continue to monitor wt trend and PO intake. RD following.
[2019-04-02 20:20] VITALS: BP 132/59
--- NOTE | 2019-04-02 21:24 | NUR ---
B.) PT IS ALERT AND ORIENTED TO SELF ONLY. SHE IS PLEASANT WITH STAFF AND PEERS AND SMILES ALOT MORE FREQUENTLY. SHE SELF PROPELS IN A WHEELCHAIR. SHE IS CLEARER AND ABLE TO HAVE A CONVERSATION WITH PEERS. I.) REDIRECT OFTEN. PROVIDED PM MEDICATIONS. R.) EASY TO REDIRECT. COMPLIANT WITH ALL MEDICATIONS. P.) WILL CONTINUE TO MONITOR.
[2019-04-03 08:05] VITALS: BP 130/55
--- NOTE | 2019-04-03 11:00 | NUR ---
B) SHE IS ALERT AND ORIENTED TO SELF ONLY. SHE IS SMILING A LOTS TODAY AND SOCIALIZES WITH PEERS. I) ADMINISTER PRESCRIBED MEDICATIONS. R) COMPLIANT WITH MEDICATIONS. MONITOR FOR SAFETY AND CHANGES. P) CONTINUE PLAN OF CARE.
--- NOTE | 2019-04-03 12:35 | PN ---
PATIENT:SILVIA MARIE MEDICAL RECORD: [id number] LOCATION:[facility] ADMISSION DATE: 03/16/19 PROGRESS NOTE DATE OF SERVICE: 04/02/2019 SUBJECTIVE: The patient's case was discussed with staff. She has no new complaint. OBJECTIVE: The patient is significantly better. She is much more cooperative. She is eating. She is sleeping and she actually participated some in group. I am encouraged by her response to treatment and will maintain current therapies. ASSESSMENT: Alcohol-related dementia. PLAN: The patient will be maintained on current medications. Her long-term prognosis is guarded. Supportive and educational interventions were made. She actually allowed me to talk with her today, but after a couple of minutes dismissed me. TRANSINT:[id number] Voice Confirmation ID: [id number] DOCUMENT ID: [id number] NOHEMI MONTANEZ MD at 1235 CC: [id number] DICTATION DATE: 04/02/19 1511 TAX PROCESSOR: 04/02/19 1825 ADM IN [place] [id number] [place] [id number]
--- NOTE | 2019-04-03 20:10 | NUR ---
RECEIVED IN DAYROOM. SITTING IN A RECLINING CHAIR WITH PEERS AT HER SIDE. CALM AND COOPERATIVE WITH CARE AND ASSESSMENT. ENCOURAGE TO EXPRESS NEEDS. REDIRECT AND REORIENT NEEDED. CONTINUES TO SIT CALMLY IN DAYROOM. CONTINUE PLAN OF CARE
[2019-04-03 20:16] VITALS: BP 128/60
[2019-04-04 10:09] VITALS: BP 124/52
--- NOTE | 2019-04-04 15:38 | PN ---
PATIENT:SILVIA MARIE MEDICAL RECORD: [id number] LOCATION:[facility] ADMISSION DATE: 03/16/19 PROGRESS NOTE DATE OF SERVICE: 04/03/2019 SUBJECTIVE: The patient's case was discussed with staff. She has no new complaint. OBJECTIVE: The patient is tolerating her medicines well. She has not been significantly agitated. She is not eating as well as she has previously done. She has pretty limited insight about her situation. ASSESSMENT: Alcohol-related dementia. PLAN: Current medicines and therapies have been reviewed and will be maintained. Long-term prognosis is guarded. TRANSINT:[id number] Voice Confirmation ID: [id number] DOCUMENT ID: [id number] NOHEMI MONTANEZ MD at 1538 CC: [id number] DICTATION DATE: 04/03/19 1255 BIOCHEMISTRY TEACHER: 04/03/19 2229 ADM IN [place] [id number] [place] [address]
--- NOTE | 2019-04-04 23:49 | NUR ---
B.) PT IS ALERT AND ORIENTED TO SELF ONLY. SHE IS RECEIVED IN DAYROOM IN A WHEELCHAIR. SHE IS PLEASANT WITH STAFF AND PEERS. SHE IS ABLE TO MAKE HER NEEDS KNOWN. I.) PROVIDED PM MEDICATIONS. REDIRECT NEEDED. R.) COMPLIANT WITH ALL MEDICATIONS. EASY TO REDIRECT. P.) WILL CONTINUE TO MONITOR.
[2019-04-05 09:10] VITALS: BP 136/45
--- NOTE | 2019-04-05 09:20 | NUR ---
PT SITTING IN W/C WITH STAFF AND PEERS. PT SMILES AND IS VERY FRIENDLY WITH STAFF AND PEERS. COMPLIANT WITH MEDS, VITALS AND ASSESSMENTS. PT TOOK MEDICATIONS. PT CAN PROPELL SELF IN W/C. PT CAN HOLD BETTER CONVERSION. CHAIR ALARM IN PLACE AND ACTIVE. WILL CONT PLAN OF CARE.
--- NOTE | 2019-04-05 12:22 | NUR ---
NUTRITION F/U PT TOLERATING [facility] SOFT DIET WITH ~ 40% INTAKE RECENT MEALS. NOTE SLIGHT WT INCREASE. WILL CONTINUE TO MONITOR PO INTAKE AND WT. RD FOLLOWING
--- NOTE | 2019-04-05 15:12 | PN ---
PATIENT:SILVIA MARIE MEDICAL RECORD: [id number] LOCATION:[facility] ADMISSION DATE: 03/16/19 PROGRESS NOTE DATE OF SERVICE: 04/04/2019 SUBJECTIVE: The patient's case was discussed with staff. She has no new complaint. OBJECTIVE: The patient is interactive somewhat and does talk to me a little. She has no thoughts of harming herself. ASSESSMENT: Alcohol-related dementia. PLAN: The patient has been started on antidepressant medication. Unfortunately, she is still not sleeping very well. I am going to give her a low dose of Librium to assist with sleep consolidation for at least a couple of days. TRANSINT:[id number] Voice Confirmation ID: [id number] DOCUMENT ID: [id number] NOHEMI MONTANEZ MD at 1512 CC: [id number] DICTATION DATE: 04/04/19 1613 PAPER LATCHER: 04/05/19 0203 ADM IN [place] [id number] [place] [id number]
[2019-04-06 00:17] VITALS: BP 178/88
--- NOTE | 2019-04-06 01:09 | NUR ---
PATIENT HAS A VERY FLAT AFFECT, COMPLIANT WITH MEDS MOST OF THE TIME, NO ADVERSE REACTION NOTED TO MEDS, HOWEVER HER MOVEMENTS ARE SLOW. SHE IS DEPENDENT UPON STAFF FOR A LOT OF HER ADL'S BUT DOES ATTEMPT TO HELP HERSELF. WILL MONITOR
[2019-04-06 09:00] VITALS: BP 108/57
--- NOTE | 2019-04-06 11:01 | NUR ---
The patient is awake and she assisted staff to get up this am. She is more alert and she is talking more to staff, but she picks and chooses who she speaks to. She is in a w/c and she can self propel in a w/c. Provide prescribed meds. The patient is compliant with meds. Continue POC.
--- NOTE | 2019-04-06 15:48 | PN ---
PATIENT:SILVIA MARIE MEDICAL RECORD: [id number] LOCATION:[facility] ADMISSION DATE: 03/16/19 PROGRESS NOTE DATE OF SERVICE: 04/05/2019 SUBJECTIVE: The patient's case was discussed with staff. She has no new complaint. OBJECTIVE: The patient has significantly improved. I think she is at or near her baseline and needs rehabilitative services. ASSESSMENT: Alcohol-related dementia. PLAN: Current medicines have been reviewed and will be maintained. Long-term prognosis is guarded. TRANSINT:[id number] Voice Confirmation ID: [id number] DOCUMENT ID: [id number] NOHEMI MONTANEZ MD at 1548 CC: [id number] DICTATION DATE: 04/05/19 170 LEAD WEB DEVELOPER: 04/06/19 0259 ADM IN [place] [id number] [place] [address]
--- NOTE | 2019-04-06 19:54 | NUR ---
PATIENT IS CONFUSED, VERY FLAT AFFECT, SLOW KINETIC MOTIONS, POOR EYE CONTACT, CAN MAKE SIMPLE NEEDS KNOWN. COMPLIANT WITH MEDS. NEEDS HELP WITH ADL'S MODERATELY. WILL FOLLOW POC
[2019-04-06 20:00] VITALS: BP 126/55
[2019-04-07 08:38] VITALS: BP 120/62
--- NOTE | 2019-04-07 10:21 | NUR ---
PT SITTING IN W/C DRINKING JUICE. PT IS VERY FRIENDLY WITH STAFF. FLAT AFFECT NOTED. CAN MAKE SOME NEEDS KNOWN. PT IS ALERT, CONFUSED AND ALERT TO SELF ONLY. PT DOES REQUIRE ASSISTANCE WITH ADLS. PT IS COMPLIANT WITH MEDS, VITALS AND ASSESSMENTS. CHAIR ALARM IN PLACE AND ACTIVE. WILL CONT PLAN OF CARE.
--- NOTE | 2019-04-07 11:12 | PN ---
PATIENT:SILVIA MARIE MEDICAL RECORD: [id number] LOCATION:[facility] ADMISSION DATE: 03/16/19 PROGRESS NOTE DATE OF SERVICE: 04/06/2019 SUBJECTIVE: The patient's case was discussed with staff. She has no new complaint. OBJECTIVE: The patient is in reasonably good behavioral control that is to say she has certainly not been aggressive or disruptive in any way, although she continues to be isolative and does not want to interact with me. ASSESSMENT: Alcohol-related dementia. PLAN: Current medicines have been reviewed. I am optimistic that she can be reasonably transitioned to a [place] [facility] [place] soon. From my standpoint, I think she is at or near her baseline level of functioning. TRANSINT:[id number] Voice Confirmation ID: [id number] DOCUMENT ID: [id number] NOHEMI MONTANEZ MD at 1112 CC: [id number] DICTATION DATE: 04/06/19 1641 SUPERVISOR BODY ASSEMBLY: 04/06/19 2341 ADM IN [place] [id number] [place] [address]
--- NOTE | 2019-04-07 20:12 | NUR ---
PATIENT IS CONFUSED, VERY FLAT AFFECT, DOES NOT MAKE HER NEEDS KNOWN, COMPLIANT WITH MEDS, GETS AGITATED EASILY, WILL FOLLOW POC
[2019-04-07 20:32] VITALS: BP 126/67
[2019-04-08 10:04] VITALS: BP 141/68
--- NOTE | 2019-04-08 10:13 | NUR ---
PT UP IN W/C THIS SHIFT. PT IS VERY FRIENDLY WITH STAFF AND PEERS. PT IS ALERT CONFUSED AND ALERT TO SELF ONLY. NO BEHAVIORS NOTED THUS FAR. CAN MAKE SOME NEEDS KNOWN. PT COMPLIANT WITH STAFF, VITALS AND ASSESSMENTS. WILL CONT PLAN OF CARE.
--- NOTE | 2019-04-08 10:46 | PN ---
PATIENT:SILVIA MARIE MEDICAL RECORD: [id number] LOCATION:[facility] ADMISSION DATE: 03/16/19 PROGRESS NOTE DATE OF SERVICE: 04/07/2019 SUBJECTIVE: The patient's case was discussed with staff. She has no new complaint. OBJECTIVE: The patient denies intent to harm herself or others. She is minimally cooperative, but she does speak to me some. She is clearly impaired cognitively. ASSESSMENT: Alcohol-related dementia. PLAN: The patient has no evidence of alcohol withdrawal. She is certainly calm and not over-sedated. I am going to discontinue her Librium and we will observe any clinical changes that occur. TRANSINT:[id number] Voice Confirmation ID: [id number] DOCUMENT ID: [id number] NOHEMI MONTANEZ MD at 1046 CC: [id number] DICTATION DATE: 04/07/19 1216 KOSHER INSPECTOR: 04/07/19 1459 ADM IN [place] [address] [place] [address]
--- NOTE | 2019-04-08 22:29 | NUR ---
PATIENT IS CONFUSED, "SNARKY", SLOW KINETIC MOTION, STREET, COMPLIANT WITH MEDS, DOES NOT MAKE NEEDS KNOWN, SHE HAS TO BE WATCHED VERY CLOSELY BECAUSE SHE DOES NOT MAKE HER NEEDS KNOWN. WILL MONITOR
[2019-04-09 02:06] VITALS: BP 140/70
[2019-04-09 07:31] VITALS: BP 135/59
--- NOTE | 2019-04-09 11:00 | NUR ---
PATIENT IS CONFUSED AND ALERT. SHE SELF-PROPELS IN WHEELCHAIR. CALM AND COOPERATIVE WITH STAFF AND ASSESSMENT. ADMINISTERED PRESCRIBED MEDICATIONS. COMPLIANT WITH MEDS. CONTINUE PLAN OF CARE.
--- NOTE | 2019-04-09 13:23 | PN ---
PATIENT:SILVIA MARIE MEDICAL RECORD: [id number] LOCATION:[facility] [address] ADMISSION DATE: 03/16/19 PROGRESS NOTE DATE OF SERVICE: 04/08/2019 SUBJECTIVE: The patient's case was discussed with staff. She has no new complaint. OBJECTIVE: The patient is in good behavioral control. I see no clinical changes either behaviorally or cognitively with the discontinuation of her Librium. ASSESSMENT: Alcohol-related dementia. PLAN: The patient will be transitioned out of the hospital as soon as appropriate placement can be arranged. TRANSINT:[id number] Voice Confirmation ID: [id number] DOCUMENT ID: [id number] NOHEMI MONTANEZ MD at 1323 CC: [id number] DICTATION DATE: 04/08/19 1207 VEGETABLE PICKER: 04/09/19 0013 ADM IN [facility] [address] [place] [address]
[2019-04-09 19:48] VITALS: BP 140/68
--- NOTE | 2019-04-10 00:01 | NUR ---
B.) PT IS ALERT AND ORIENTED TO SELF AND SITUATION. SHE IS PLEASANT WITH STAFF AND PEERS. HER BEHAVIOR IS APPROPRIATE. SHE IS ABLE TO MAKE HER NEEDS KNOWN. I.) PROVIDED PM MEDICATION PRESCRIBED. REDIRECT NEEDED. R.) COMPLIANT WITH ALL MEDICATIONS. EASY TO REDIRECT.. P.) WILL CONTINUE TO MONITOR.
[2019-04-10 08:46] VITALS: BP 128/66
--- NOTE | 2019-04-10 11:00 | NUR ---
The patient is awake and she is pleasant. She is self propelling in a w/c, she is communicating and socializing with staff and peers. She is sleepy, but she is interacting in groups and activities. Provide prescribed meds. The patient is compliant with meds. Continue POC.
--- NOTE | 2019-04-10 15:20 | PN ---
PATIENT:SILVIA MARIE MEDICAL RECORD: [id number] LOCATION:[facility] ADMISSION DATE: 03/16/19 PROGRESS NOTE DATE OF SERVICE: 04/09/2019 SUBJECTIVE: The patient's case was discussed with staff. She has no new complaint. OBJECTIVE: The patient denies intent to harm herself or others. She is generally tolerating her medicines well. ASSESSMENT: Alcohol-related dementia. PLAN: The patient can be transitioned out of the hospital as soon as placement is arranged. TRANSINT:[id number] Voice Confirmation ID: [id number] DOCUMENT ID: [id number] NOHEMI MONTANEZ MD at 1520 CC: [id number] DICTATION DATE: 04/09/19 1638 STRAW HAT BRIM RAISER OPERATOR: 04/09/19 2320 ADM IN [place] [id number] [place] [address]
--- NOTE | 2019-04-10 15:25 | NUR ---
Nutrition Follow-up: Chart reviwed. Eating better per MD notes. Diet: Regular Mech Soft + Ensure with meals and inbetween PO intake: ~66% average x last 6 meals Last BM: 04/10/19. WT: 147# (04/08/19); Admit wt: 135.4# (03/17/19) Meds noted: megace. No new labs. Recommend continue current diet and oral nutrition supplement. RD following.
--- NOTE | 2019-04-10 22:08 | NUR ---
REC'D SITTING IN A WHELLCHAIR IN THE DAYROOM. CONFUSED AND DISORIENTED. POOR EYE CONTACT. CAN ROLL SELF AROUND IN WHEELCHAIR. POOR INTERACTION WITH OTHERS. ADMINISTER MEDS AND MONITOR COMPLIANCE. REORIENT NEEDED. MED COMPLIANT. POOR REORIENTATION DUE TO IMPAIRED ABILITY TO PROCESS AND RETAIN INFORMATION. CONTINUE POC AND PROVIDE SAFE ENVIRONMENT.
[2019-04-10 22:44] VITALS: BP 124/63
--- NOTE | 2019-04-11 11:34 | PN ---
PATIENT:SILVIA MARIE MEDICAL RECORD: [id number] LOCATION:[facility] ADMISSION DATE: 03/16/19 PROGRESS NOTE DATE OF SERVICE: 04/10/2019 SUBJECTIVE: The patient's case was discussed with staff. She has no new complaint. OBJECTIVE: The patient denies intent to harm herself or others. She is impaired cognitively, but has no behavior issues that would represent a danger to others. 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 PLAN: The patient will be maintained on current medicines and can be discharged as soon as arrangements are made. As I understand it, she is going to go to the [facility], but her insurance carrier has not approved her for a rehabilitation stay there. Once approved, she may be transferred. I think she is clinically appropriate for rehab, but waiting for approval is not something that I have any control over at this point. She is ready for discharge from my standpoint. TRANSINT:[id number] Voice Confirmation ID: [id number] DOCUMENT ID: [id number] NOHEMI MONTANEZ MD at 1134 CC: [id number] DICTATION DATE: 04/10/19 1528 LEAD TECHNICIAN: 04/10/19 2205 ADM IN [facility] [address] [place] [address]
--- NOTE | 2019-04-11 13:00 | NUR ---
PATIENT IS AWAKE AND ALERT. SOCIALIZING WITH PEERS AND STAFF. SMILING SHE SELF-PROPELS IN W\C. CALM AND COOPERATIVE WITH CARE AND ASSESSMENT. REDIRECT AND REORIENT NEEDED. ADMINISTER PRESCRIBED MEDICATIONS. COMPLIANT WITH MEDICATIONS. CONTINUE PLAN OF CARE.
[2019-04-11 16:56] VITALS: BP 148/67
[2019-04-11 20:04] VITALS: BP 122/58
--- NOTE | 2019-04-12 00:42 | NUR ---
B)RECEIVED SITTING IN WHEELCHAIR IN THE DAYROOM. POOR EYE CONTACT. ORIENTED TO SELF ONLY. DOES NOT INTERACT WITH PEERS. I)ADMINISTER MEDS AND MONITOR COMPLIANCE. REORIENT NEEDED. R)MED COMPLIANT. POOR REORIENTATION DUE TO IMPAIRED ABILITY TO COMPREHEND, PROCESS AND RETAIN INFORMATION. P)CONTINUE POC AND PROVIDE SAFE ENVIRONMENT.
[2019-04-12 10:33] VITALS: BP 130/66
--- NOTE | 2019-04-12 14:21 | NUR ---
The patient is awake and alert, her affect is brighter. She is confused and has poor insight into her situation. She can self propel in the w/c. She did ambulate today with P.T. with much encouragement. She interjects and copies what others say. Provide prescribed meds. The patient is compliant with meds. Continue POC.
--- NOTE | 2019-04-12 15:13 | NUR ---
Nutrition Follow-up: Diet: Regular [facility] Soft + Ensure with meals and inbetween PO intake: ~56% average x last 9 meals Last BM: 04/12/19. WT: 147# (04/08/19); Admit wt: 135.4# (03/17/19) Meds noted: megace. No new labs. Continue PO diet per [employer] PROFESSOR. Encourage PO intake. RD following.
--- NOTE | 2019-04-12 15:55 | PN ---
PATIENT:SILVIA MARIE MEDICAL RECORD: [id number] LOCATION:[facility] ADMISSION DATE: 03/16/19 PROGRESS NOTE DATE OF SERVICE: 04/11/2019 SUBJECTIVE: The patient's case was discussed with staff. She has no new complaint. OBJECTIVE: The patient is in good behavioral control very poorly oriented cognitively, but is interacting some. I see no difference in her clinically since discontinuing her Librium. I do plan to maintain her on current medicines and we will transition her to rehabilitation services when medically stable. TRANSINT:[id number] Voice Confirmation ID: [id number] DOCUMENT ID: [id number] NOHEMI MONTANEZ MD at 1555 CC: [id number] DICTATION DATE: 04/11/19 1627 WINE CONSULTANT: 04/12/19 0201 ADM IN [place] [address] [place] [address]
[2019-04-12 20:13] VITALS: BP 124/64
--- NOTE | 2019-04-12 21:22 | NUR ---
B)RECEIVED SITTING IN THE DAYROOM. ORIENTED TO SELF ONLY. INTERACTIVE HOWEVER DOES NOT FOLLOW TOPIC OF CONVERATION. POOR EYE CONTACT. DOES NOT FOLLOW VERBAL INSTRUCTION WELL FOR EXAMPLE WHEN TELLING PATIENT IT IS TIME FOR BED SHE WILL JUST SIT ON THE SIDE OF THE BED AND NOT LAY DOWN. I)ADMINISTER MEDS AND MONITOR COMPLIANCE. REORIENT NEEDED. R)MED COMPLIANT. POOR REORIENTATION DUE TO IMPAIRED ABILITY TO UNDERSTAND AND RETAIN INFORMATION. P)CONTINUE POC AND PROVIDE SAFE ENVIRONMENT.
--- NOTE | 2019-04-13 00:10 | NUR ---
PT WILL NOT GO TO BED AND IS UP IN WHEELCHAIR WANDERING ON UNIT. PATIENT KEEPS GOING IN THE MALE PATIENTS ROOMS AND WAS OBSERVED TRYING TO HOLD ONE PATIENT'S HAND REDIRECTED SEVERAL TIMES WITH NO SUCCESS. HALDOL AND ATIVAN IM ADMINISTERED BY Amol JERRY RN PER PHYSICIAN ORDERS.
--- NOTE | 2019-04-13 10:00 | NUR ---
PT IS DROWSY THIS SHIFT RELATED TO PRN GIVEN ON PREVIOUS SHIFT. PT IS ALERT CONFUSED AND ORIENTED TO SELF ONLY. PT CAN MAKE SOME NEEDS KNOWN. PT IS COMPLIANT WITH MEDS, VITALS AND ASSESSMENT. CHAIR ALARM IN PLACE AND ACTIVE. WILL CONT PLAN OF CARE.
[2019-04-13 11:07] VITALS: BP 151/85
--- NOTE | 2019-04-13 14:20 | PN ---
PATIENT:SILVIA MARIE MEDICAL RECORD: [id number] LOCATION:[facility] ADMISSION DATE: 03/16/19 PROGRESS NOTE DATE OF SERVICE: 04/12/2019 SUBJECTIVE: The patient's case was discussed with staff. She has no new complaint. OBJECTIVE: The patient is only partially oriented. She is cooperative and certainly not aggressive. She is eating and sleeping well. There are no psychotic symptoms. She clearly is demented and the dementia is advanced. ASSESSMENT: Alcohol-related dementia. PLAN: The patient is scheduled to go to a local shelter for rehabilitation services. She has been approved for rehab services. She would like to go to rehabilitation. Her family would like her to go to rehab, I think it is appropriate for her to go to rehabilitation, but she cannot be transferred there until her insurance company approves the stay, which they still have not done. They have had all the information they have requested and then for several days and so far are not certifying her stay here, but refused to give an answer about this stay at the shelter for rehabilitation as well. I am going to hold her here until hopefully we can get an answer from them. Unfortunately, I think the patient is caught in the middle of this and I think it is unfortunate and I am called for, but this is the situation so I will continue to hold her here provide the services that were providing and there are no symptoms that currently require this level of care, but as I just mentioned, the next level of care is blocked not by a negative answer, but by no answer from her care here. TRANSINT:[id number] Voice Confirmation ID: [id number] DOCUMENT ID: [id number] NOHEMI MONTANEZ MD at 1420 CC: [id number] DICTATION DATE: 04/12/19 1613 DIVIDEND CLERK: 04/12/19 1728 ADM IN [place] [address] [place] [address]
--- NOTE | 2019-04-13 19:26 | NUR ---
RECEIVED IN DAYROOM. SITTING QUIETLY IN WHEELCHAIR. CALM AND COOPERATIVE WITH CARE AND ASSESSMENT. NO BEHAVIOR ISSUES THIS EVENING. REDIRECT AND REORIENT NEEDED. SITTING IN WHEELCHAIR WHILE WAITING ON PM MEDICATIONS. CONTINUE PLAN OF CARE.
[2019-04-13 19:54] VITALS: BP 106/64
--- NOTE | 2019-04-14 10:14 | NUR ---
The patient is awake and alert this am, she is smiling and she will converse with staff and peers. She is self propelling in her w/c. She is able to stand with assistance. She remains confused. Provide prescribed meds. The patient is compliant with meds. Continue POC.
--- NOTE | 2019-04-14 10:30 | PN ---
PATIENT:SILVIA MARIE MEDICAL RECORD: [id number] LOCATION:[facility] ADMISSION DATE: 03/16/19 PROGRESS NOTE DATE OF SERVICE: 04/13/2019 SUBJECTIVE: The patient's case was discussed with staff. She has no new complaint. OBJECTIVE: The patient is calm today. Unfortunately, last night, she had to receive Haldol and Ativan for agitation. She has no recollection of the behaviors that required this. ASSESSMENT: Alcohol-related dementia. PLAN: I reviewed the incident last night as an isolated event. She has gone weeks without having any p.r.n. medication. Given her condition, it is understandable that she will have occasional outbursts of behavior and it is not something I am going to take an aggressive approach on with her medications. ASSESSMENT: Alcohol-related dementia. PLAN: The patient is going to be transitioned to the [facility] on Tuesday. Apparently, the nursing facility would not allow the family to complete the paperwork until or more accurately they are not willing to do the paperwork until the insurance company approved this day. The insurance company has approved to stay and now the [place] [facility] has completed the paperwork and the patient's family has to sign it and all of this means that she is not going to be able to eligible for acceptance in that facility until Tuesday. I am going to transfer her to the facility on Tuesday unless there are some major deterioration in her behaviors over the weekend, but again the incident last night is not to be unexpected and is going to happen on an occasional basis given the situation as I see it. TRANSINT:[id number] Voice Confirmation ID: [id number] DOCUMENT ID: [id number] NOHEMI MONTANEZ MD at 1030 CC: [id number] DICTATION DATE: 04/13/19 1642 SYNTHETIC GEM PRESS OPERATOR: 04/14/19 [address] [facility] [address] [place] [address]
[2019-04-14 19:00] VITALS: BP 128/59
--- NOTE | 2019-04-14 19:30 | NUR ---
RECEIVED IN DAYROOM. SITTING IN A WHEELCHAIR WITH PEERS AT HER SIDE. CALM AND COOPERATIVE WITH CARE AND ASSESSMENT. ENCOURAGE TO EXPRESS NEEDS. REDIRECT AND REORIENT NEEDED. SITTING IN A WHEELCHAIR OUTSIDE NURSES STATION AT THIS TIME. CONTINUE PLAN OF CARE
[2019-04-15 09:47] VITALS: BP 139/79
[2019-04-15] MEDS ORDERED: EFFEXOR37.5 MG PO (11:09)
[2019-04-15] MEDS ORDERED: PERPHENAZINE2 MG PO (11:09)
[2019-04-15] MEDS ORDERED: Megace ES [CHEMO] PO (11:09)
[2019-04-15] MEDS ORDERED: VITAMIN D5000 UNIT PO (11:10)
--- NOTE | 2019-04-15 17:04 | NUR ---
PATIENT HAS BEEN COOPERATIVE THIS SHIFT. NO ADVERSE BEHAVIORS NOTED. MEDS ADMIN PER ORDERS WITH COMPLETE MED COMPLIANCE NOTED. COOPERATIVE WITH PLAN OF CARE. CONT. POC DIRECTED UNTIL DISCHARGE WITHIN THE COMING DAYS.
--- NOTE | 2019-04-15 19:13 | NUR ---
RECEIVED IN DAYROOM. SITTING IN A WHEECHAIR WITH PEERS AT HER SIDE. CALM AND COOPERATIVE WITH CARE AND ASSESSMENT. ENCOURAGE TO EXPRESS NEEDS. SITTING OUTSIDE OF NURSES STATION. CONTINUE PLAN OF CARE
--- NOTE | 2019-04-16 08:00 | NUR ---
REC'D PT SITTING IN W/C. AWAKE AND ALERT TO SELF ONLY. CALM AND COOPERATIVE WITH ASSESSMENT. PRESCRIBED MEDS PROVIDED NEEDED. MED COMPLIANT. NO BEHAVIORS NOTED AT THIS TIME. REDIRECT AND REORIENT NEEDED. FALL PRECAUTIONS IN PLACE. WILL CPOC.
[2019-04-16 09:25] VITALS: BP 143/73
--- NOTE | 2019-04-16 16:07 | PN ---
PATIENT:SILVIA MARIE MEDICAL RECORD: [id number] LOCATION:[facility] ADMISSION DATE: 03/16/19 PROGRESS NOTE DATE OF SERVICE: 04/15/2019 SUBJECTIVE: The patient's case was discussed with staff and the chart was reviewed. OBJECTIVE: The patient denies intent to harm herself or others. She is interacting some, but still very impaired cognitively. ASSESSMENT: Alcohol-related dementia. PLAN: The patient will be transitioned out of the hospital tomorrow. Her long-term prognosis is guarded. She has improved significantly since admission, but she is very far from how her son Adam described her condition to me at [facility]. In my opinion, her condition looks like an advanced dementia that is irreversible and I would not anticipate significant cognitive improvement. TRANSINT:[id number] Voice Confirmation ID: [id number] DOCUMENT ID: [id number] NOHEMI MONTANEZ MD at 1607 CC: [id number] DICTATION DATE: 04/15/19 1127 COMPOSITION TEACHER: 04/15/19 1216 ADM IN [place] [address] [place] [address]
--- NOTE | 2019-04-16 16:08 | PN ---
PATIENT:SILVIA MARIE MEDICAL RECORD: [id number] LOCATION:[facility] ADMISSION DATE: 03/16/19 PROGRESS NOTE DATE OF SERVICE: 04/14/2019 SUBJECTIVE: The patient's case was discussed with staff. She has no new complaint. OBJECTIVE: The patient is calm and cooperative, but confused. There is no evidence of acute dangerousness. ASSESSMENT: Alcohol-related dementia. PLAN: The patient will be transitioned to the retirement for rehabilitation services Tuesday. TRANSINT:[id number] Voice Confirmation ID: [id number] DOCUMENT ID: [id number] NOHEMI MONTANEZ MD at 1608 CC: [id number] DICTATION DATE: 04/14/19 1105 MANAGER ARCHITECTURE: 04/14/19 1146 ADM IN [place] [id number]
--- NOTE | 2019-04-16 20:17 | NUR ---
RECEIVED IN DAYROOM. SITTING IN A WHEELCHAIR WITH PEERS AT HER SIDE. CALM AND COOPERATIVE WITH CARE AND ASSESSMENT. ENCOURAGE TO EXPRESS NEEDS. REDIRECT AND REORIENT NEEDED. RESTING QUIETLY IN WHEELCHAIR OUTSIDE OF NURSES STATION. CONTINUE PLAN OF CARE
[2019-04-17 03:27] VITALS: BP 130/66
--- NOTE | 2019-04-17 09:00 | NUR ---
AWAKE AND ALERT TO SELF ONLY. CALM AND COOPERATIVE WITH CARE AND ASSESSMENT. SELF-PROPELS IN WHEELCHAIR. ADMINISTER PRESCRIBED MEDICATIONS ORDERED. COMPLIANT WITH MEDICATIONS. REDIRECT AND REORIENT NEEDED. CONTINUE PLAN OF CARE.
[2019-04-17 09:27] VITALS: BP 143/67
--- NOTE | 2019-04-17 14:03 | PN ---
PATIENT:SILVIA MARIE MEDICAL RECORD: [id number] LOCATION:[facility] ADMISSION DATE: 03/16/19 PROGRESS NOTE DATE OF SERVICE: 04/16/2019 SUBJECTIVE: The patient's case was discussed with staff. She has no new complaint. OBJECTIVE: The patient is impaired cognitively, but denies that she would seek to harm herself. She is tolerating her medicines well. ASSESSMENT: Alcohol-related dementia. PLAN: The patient was scheduled to go to the [facility] today for rehabilitative services, but unfortunately, the office of long-term care and [facility] [place] closed because of the Tuesday holiday for Dr. Patrick Echeverria and I do not have the required paperwork. She has been ready for discharge and is documented by myself and the search planner and there has been obstacles that have prevented her discharge. Obviously, she cannot go home or care for herself and I will discharge her as soon as these non-clinical obstacles are removed. TRANSINT:[id number] Voice Confirmation ID: [id number] DOCUMENT ID: [id number] NOHEMI MONTANEZ MD at 1403 CC: [id number] DICTATION DATE: 04/16/19 1621 DIRECTOR OF CORPORATE STRATEGY: 04/16/19 2133 ADM IN [place] [address] [place] [address]
--- NOTE | 2019-04-17 14:20 | NUR ---
REPORT CALLED TO [facility]. SPOKE WITH DEBORAH COSTA. BELONGINGS COLLECTED AND DISCHARGE PACKET SENT TO [facility].
== END 2019-04-17 14:50 | DRG 897 ==
LOC: D.PSYCH 16:56
PROVIDERS: ADMIT Psychiatry & Neurology Psychiatry; ATTEND Psychiatry & Neurology Psychiatry
DX: F10.97 Alcohol use, unspecified with alcohol-induced persisting dementia (principal); I48.91 Unspecified atrial fibrillation; J44.9 Chronic obstructive pulmonary disease, unspecified; E55.9 Vitamin D deficiency, unspecified; F17.200 Nicotine dependence, unspecified, uncomplicated